=== PATIENT | male | born 1935 | race Caucasian/White ===

== ENCOUNTER 2018-08-16 08:15 | Inpatient (IN) | payer MEDICARE ==
[~2018-08-16] VITALS: Ht 167.6 cm; Wt 81.6 kg
[2018-08-16] VITALS (8 sets, daily range): BP systolic 106–147; BP diastolic 48–93
[2018-08-16] MEDS ORDERED: AZITHROMYCIN 500 MG in DEXT 5% WATER 250 ML IV STA (09:21)
[2018-08-16] MEDS ORDERED: CEFTRIAXONE 1 G PREMIX 50 ML IV SCH (09:30)
[2018-08-16 09:32] LABS: BASOPHILS % 0.4 % (0.0-2.0); EOSINOPHILS % 1.3 % (0.0-5.0); HEMATOCRIT. 37.4 % (42.0-52.0); HEMOGLOBIN. 12.3 g/dL (14.0-18.0); LYMPHOCYTES % 7.7 % (20.0-50.0); MEAN CORPUSCULAR HEMOGLOBIN 29.5 pg (28.0-32.0); MEAN CORPUSCULAR VOLUME 89.5 fL (80.0-94.0); MONOCYTES % 3.6 % (2.0-8.0); RED BLOOD CELL COUNT 4.18 mill/uL (4.7-6.1); RED CELL DISTRIBUTION WIDTH 14.5 % (11.6-14.6)
[2018-08-16 09:40] LABS: PROTHROMBIN TIME 10.4 sec (9.6-11.0)
[2018-08-16 09:41] LABS: CHLORIDE 103 mEq/L (98-107)
[2018-08-16] MEDS ORDERED: SODIUM CHLORIDE 0.9% 1,000 ML IV ONE (09:45)
[2018-08-16 10:11] LABS: PLATELET 284 x1000/uL (130-400)
[2018-08-16] MEDS ORDERED: DEXT 5% IV PRN (11:15)
[2018-08-16] MEDS ORDERED: MORPHINE IV PRN (11:15)
[2018-08-16] MEDS ORDERED: WATER IV PRN (11:15)
[2018-08-16] MEDS ORDERED: MORPHINE SULFATE 4 MG/ML CPJ (NOT FOR IM USE) IV ONE (11:15)
[2018-08-16 15:14] LABS: BG BASE EXCESS -0.1 mmol/L (-2.0-2.0); BG CARBOXYHEMOGLOBIN 0.3 % (0.5-1.5); BG FRACTION INSPIRED OXYGEN 100; BG HCO3 ACT 25.6 mmol/L (22.0-26.0); BG METHEMOGLOBIN 0.9 % (0.0-1.5); BG OXYHEMOGLOBIN 97.8 % (94.0-97.0); BG PCO2 46.2 mmHg (35.0-45.0); BG PH 7.362 (7.350-7.450); BG PO2 268.2 mmHg (75.0-100.0); BG SAMPLE SITE RIGHT RADIAL; BG TOTAL HEMOGLOBIN 12.3 g/dL (12.0-18.0); BG VENT MODE MASK - NRB
[2018-08-16] MEDS ORDERED: ALBUTE HHN (15:29)
[2018-08-16] MEDS ORDERED: FURO-152 MT (15:29)
[2018-08-16] MEDS ORDERED: PANT40TA4 MT (15:29)
[2018-08-16] MEDS ORDERED: PRED5TAB MT (15:29)
[2018-08-16] MEDS ORDERED: COR6 MT (15:42)
[2018-08-16] MEDS ORDERED: LACT10SO30 MT (15:42)
[2018-08-16] MEDS ORDERED: AMLO10TA80 MT (15:42)
[2018-08-16] MEDS ORDERED: RESTORIL PO (15:42)
[2018-08-16] MEDS ORDERED: DOCU-155 MT (15:42)
[2018-08-16] MEDS ORDERED: CLON0.1T MT (15:42)
[2018-08-16] MEDS ORDERED: GABA-531 MT (15:42)
[2018-08-16] MEDS ORDERED: OXYC10TA48 MT (15:42)
[2018-08-16] MEDS ORDERED: DULO60CA44 MT (15:42)
[2018-08-16] MEDS ORDERED: LORA1TAB MT (15:42)
[2018-08-16] MEDS ORDERED: LOSA100T3 MT (15:42)
[2018-08-16] MEDS ORDERED: LORA0.5T2 MT (15:44)
[2018-08-16] MEDS ORDERED: MAG-55 MT (15:44)
[2018-08-16] MEDS ORDERED: AMLO10TA4 PO (15:47)
[2018-08-16] MEDS ORDERED: [UNRECOGNIZED DRUG - OTHER] (15:57)
[2018-08-16] MEDS ORDERED: MORP10DI10 MT (15:57)
[2018-08-16] MEDS ORDERED: MAGNESIUM/ALUMINUM HYDROXIDE/SIMETHICONE 30ML UDC PO PRN (16:45)
[2018-08-16] MEDS ORDERED: IPRATROPIUM/ALBUTEROL 0.5-3(2.5)MG/3ML NEB INH PRN (16:45)
[2018-08-16] MEDS ORDERED: ONDANSETRON HCL 4MG/2ML INJ IV PRN (16:45)
[2018-08-16] MEDS ORDERED: ACETAMINOPHEN 325MG TABLET PO PRN (16:45)
[2018-08-16] MEDS ORDERED: ACETAMINOPHEN 650MG SUPP PR PRN (16:45)
[2018-08-16] MEDS ORDERED: NA PHOS,M-B/NA PHOS,DI-BA ENEMA 118ML PR PRN (16:45)
[2018-08-16] MEDS ORDERED: GUAIFENESIN 200MG/10ML SUGAR FREE UDC PO PRN (16:45)
[2018-08-16] MEDS ORDERED: ACETAMINOPHEN 650MG/20.3ML UDC GT PRN (16:45)
[2018-08-16] MEDS ORDERED: VANCOMYCIN 1 G PREMIX 200 ML IV SCH (16:45)
[2018-08-16] MEDS: LEVOFLOXACIN 500MG PREMIX 100 ML IV SCH (18:38)
[2018-08-16] MEDS: METHYLPREDNISOLONE SOD SUCC 40 MG/ML VIAL IV SCH (18:45)
[2018-08-16] MEDS: ENOXAPARIN 40MG/0.4ML SYR SUBCUT SCH (18:46)
[2018-08-16] MEDS ORDERED: VANCOMYCIN 1250MG in DEXTROSE 5% WATER 250ML IV SCH (20:00)
[2018-08-16] MEDS: IPRATROPIUM/ALBUTEROL 0.5-3(2.5)MG/3ML NEB INH SCH (21:07)
[2018-08-16] MEDS: HYDROCODONE/ACETAMINOPHEN 5/325MG TABLET PO PRN (21:54)
[2018-08-17] VITALS (17 sets, daily range): BP systolic 114–144; BP diastolic 60–93
[2018-08-17] MEDS: SODIUM CHLORIDE 0.9% INJ 3ML FLUSH IVF SCH ×4 (01:08→22:00)
[2018-08-17] MEDS: METHYLPREDNISOLONE SOD SUCC 40 MG/ML VIAL IV SCH ×3 (01:40→17:16)
[2018-08-17] MEDS: IPRATROPIUM/ALBUTEROL 0.5-3(2.5)MG/3ML NEB INH SCH ×4 (02:37→21:05)
[2018-08-17 07:33] LABS: BASOPHILS % 0.1 % (0.0-2.0); HEMATOCRIT. 35.8 % (42.0-52.0); HEMOGLOBIN. 12.1 g/dL (14.0-18.0); LYMPHOCYTES % 20.9 % (20.0-50.0); MEAN CORPUSCULAR HEMOGLOBIN 29.8 pg (28.0-32.0); MEAN CORPUSCULAR VOLUME 88.1 fL (80.0-94.0); MEAN PLATELET VOLUME 8.1 fl (7.4-10.4); MONOCYTES % 2.6 % (2.0-8.0); NEUTROPHILS % 76.4 % (40.0-76.0); PLATELET 246 x1000/uL (130-400); RED BLOOD CELL COUNT 4.06 mill/uL (4.7-6.1); RED CELL DISTRIBUTION WIDTH 13.8 % (11.6-14.6)
[2018-08-17] MEDS: AZTREONAM 2 GM in DEXT 5% WATER 100 ML IV SCH ×2 (08:12→17:10)
[2018-08-17 08:31] LABS: CHLORIDE 101 mEq/L (98-107)
[2018-08-17 08:40] LABS: HDL CHOLESTEROL 45 mg/dL (40-59); LDL CHOLESTEROL 107 mg/dL (5-100)
[2018-08-17] MEDS ORDERED: CEFTRIAXONE 1 G PREMIX 50 ML IV SCH (09:00)
[2018-08-17] MEDS: VANCOMYCIN 750 MG PREMIX 150 ML IV SCH ×2 (10:00→20:05)
[2018-08-17] MEDS: HYDROCODONE/ACETAMINOPHEN 5/325MG TABLET PO PRN ×2 (10:10→20:05)
[2018-08-17] MEDS: ENOXAPARIN 40MG/0.4ML SYR SUBCUT SCH (17:16)
[2018-08-17] MEDS: LEVOFLOXACIN 500MG PREMIX 100 ML IV SCH (18:20)
[2018-08-18] VITALS (12 sets, daily range): BP systolic 136–176; BP diastolic 59–95
[2018-08-18] MEDS: METHYLPREDNISOLONE SOD SUCC 40 MG/ML VIAL IV SCH (01:31)
[2018-08-18] MEDS: OXYCODONE HCL/ACETAMINOPHEN 5/325MG TABLET PO PRN (01:31)
[2018-08-18] MEDS: IPRATROPIUM/ALBUTEROL 0.5-3(2.5)MG/3ML NEB INH SCH ×4 (02:07→20:27)
[2018-08-18] MEDS: SODIUM CHLORIDE 0.9% INJ 3ML FLUSH IVF SCH ×3 (05:40→22:51)
[2018-08-18] MEDS: AZTREONAM 2 GM in DEXT 5% WATER 100 ML IV SCH ×2 (05:40→17:37)
[2018-08-18] MEDS ORDERED: METHYLPREDNISOLONE SOD SUCC 40 MG/ML VIAL IV SCH (09:00)
[2018-08-18] MEDS ORDERED: SODIUM CHLORIDE 10% FOR INH 15ML VIAL NEB INH SCH (10:00)
[2018-08-18 10:02] LABS: BASOPHILS % 0.2 % (0.0-2.0); HEMATOCRIT. 36.1 % (42.0-52.0); HEMOGLOBIN. 11.9 g/dL (14.0-18.0); LYMPHOCYTES % 13.3 % (20.0-50.0); MEAN CORPUSCULAR HEMOGLOBIN 29.2 pg (28.0-32.0); MEAN CORPUSCULAR VOLUME 88.3 fL (80.0-94.0); MEAN PLATELET VOLUME 8.4 fl (7.4-10.4); MONOCYTES % 2.6 % (2.0-8.0); NEUTROPHILS % 83.9 % (40.0-76.0); PLATELET 266 x1000/uL (130-400); RED BLOOD CELL COUNT 4.08 mill/uL (4.7-6.1); RED CELL DISTRIBUTION WIDTH 14.1 % (11.6-14.6)
[2018-08-18 10:10] LABS: CHLORIDE 103 mEq/L (98-107)
[2018-08-18] MEDS ORDERED: POTASSIUM CHLORIDE 20MEQ TABLET SR PO SCH (12:45)
[2018-08-18] MEDS ORDERED: ACETYLCYSTEINE 100MG/ML 10% VIAL 4ML INH SCH (13:00)
[2018-08-18] MEDS: VANCOMYCIN 1 G PREMIX 200 ML IV SCH (13:08)
[2018-08-18] MEDS: ENOXAPARIN 40MG/0.4ML SYR SUBCUT SCH (17:37)
[2018-08-18] MEDS: CLONIDINE 0.1MG TABLET PO PRN (18:10)
[2018-08-18] MEDS: LEVOFLOXACIN 500MG PREMIX 100 ML IV SCH (19:04)
[2018-08-18] MEDS: LORAZEPAM 0.5MG TABLET PO PRN (21:30)
[2018-08-18] MEDS: DIPHENHYDRAMINE 50MG/ML VIAL IV PRN (23:15)
[2018-08-19] VITALS (13 sets, daily range): BP systolic 118–185; BP diastolic 59–132
[2018-08-19] MEDS: OXYCODONE HCL/ACETAMINOPHEN 5/325MG TABLET PO PRN ×3 (01:14→17:54)
[2018-08-19] MEDS: IPRATROPIUM/ALBUTEROL 0.5-3(2.5)MG/3ML NEB INH SCH ×4 (01:39→20:55)
[2018-08-19] MEDS: ACETYLCYSTEINE 100MG/ML 10% VIAL 4ML INH SCH ×3 (01:39→14:58)
[2018-08-19] MEDS: AZTREONAM 2 GM in DEXT 5% WATER 100 ML IV SCH ×2 (06:14→18:54)
[2018-08-19] MEDS: SODIUM CHLORIDE 0.9% INJ 3ML FLUSH IVF SCH ×3 (06:14→22:38)
[2018-08-19] MEDS: CLONIDINE 0.1MG TABLET PO PRN (08:15)
[2018-08-19] MEDS: VANCOMYCIN 1 G PREMIX 200 ML IV SCH (08:17)
[2018-08-19] MEDS: HYDROCODONE/ACETAMINOPHEN 5/325MG TABLET PO PRN (08:17)
[2018-08-19] MEDS: BUDESONIDE 0.5MG/2ML NEB HHN SCH ×2 (09:16→20:55)
[2018-08-19] MEDS ORDERED: PULM50 HHN (12:52)
[2018-08-19] MEDS ORDERED: MUC103 INH (12:52)
[2018-08-19] MEDS ORDERED: IPRA3AMP9 INH (12:52)
[2018-08-19] MEDS ORDERED: AMLO5TAB4 MT (12:55)
[2018-08-19] MEDS ORDERED: LEVO500T2 MT (12:55)
[2018-08-19] MEDS: AMLODIPINE 5MG TABLET PO SCH ×2 (15:36→22:38)
[2018-08-19] MEDS: ENOXAPARIN 40MG/0.4ML SYR SUBCUT SCH (18:53)
[2018-08-19] MEDS: LEVOFLOXACIN 500MG PREMIX 100 ML IV SCH (18:54)
[2018-08-19 23:58] LABS: BASOPHILS % 0.1 % (0.0-2.0); EOSINOPHILS % 0.3 % (0.0-5.0); HEMOGLOBIN. 11.9 g/dL (14.0-18.0); LYMPHOCYTES % 23.3 % (20.0-50.0); MEAN CORPUSCULAR HEMOGLOBIN 29.2 pg (28.0-32.0); MEAN CORPUSCULAR VOLUME 87.9 fL (80.0-94.0); MEAN PLATELET VOLUME 8.3 fl (7.4-10.4); MONOCYTES % 10.1 % (2.0-8.0); NEUTROPHILS % 66.2 % (40.0-76.0); PLATELET 234 x1000/uL (130-400); RED BLOOD CELL COUNT 4.09 mill/uL (4.7-6.1); RED CELL DISTRIBUTION WIDTH 14.1 % (11.6-14.6)
[2018-08-20] VITALS (12 sets, daily range): BP systolic 116–147; BP diastolic 54–94
[2018-08-20 00:04] LABS: CHLORIDE 106 mEq/L (98-107)
[2018-08-20] MEDS: IPRATROPIUM/ALBUTEROL 0.5-3(2.5)MG/3ML NEB INH SCH ×5 (01:04→20:38)
[2018-08-20] MEDS: ACETYLCYSTEINE 100MG/ML 10% VIAL 4ML INH SCH ×4 (01:04→19:30)
[2018-08-20] MEDS: VANCOMYCIN 1 G PREMIX 200 ML IV SCH (01:37)
[2018-08-20] MEDS: SODIUM CHLORIDE 0.9% INJ 3ML FLUSH IVF SCH ×3 (06:15→21:17)
[2018-08-20] MEDS: AZTREONAM 2 GM in DEXT 5% WATER 100 ML IV SCH (06:15)
[2018-08-20] MEDS: BUDESONIDE 0.5MG/2ML NEB HHN SCH ×2 (07:38→20:38)
[2018-08-20] MEDS: AMLODIPINE 5MG TABLET PO SCH ×2 (08:08→21:17)
[2018-08-20] MEDS: OXYCODONE HCL/ACETAMINOPHEN 5/325MG TABLET PO PRN ×4 (08:08→23:21)
[2018-08-20] MEDS: CLONIDINE 0.1MG TABLET PO PRN (09:33)
[2018-08-20] MEDS ORDERED: AMLO5TAB88 PO (13:04)
[2018-08-20] MEDS ORDERED: MICA100V3 IV (13:04)
[2018-08-20] MEDS ORDERED: POTASSIUM CHLORIDE 20MEQ TABLET SR PO NR (13:15)
[2018-08-20] MEDS: MICAFUNGIN 100 MG in SODIUM CHLORIDE 0.9% 100 ML IV SCH (16:43)
[2018-08-20] MEDS: LEVOFLOXACIN 500MG PREMIX 100 ML IV SCH (17:42)
[2018-08-20] MEDS: ENOXAPARIN 40MG/0.4ML SYR SUBCUT SCH (17:42)
[2018-08-21] VITALS (23 sets, daily range): BP systolic 108–184; BP diastolic 59–117
[2018-08-21] MEDS: HYDROCODONE/ACETAMINOPHEN 5/325MG TABLET PO PRN ×4 (00:43→15:07)
[2018-08-21] MEDS: ACETYLCYSTEINE 100MG/ML 10% VIAL 4ML INH SCH ×3 (01:13→21:10)
[2018-08-21] MEDS: IPRATROPIUM/ALBUTEROL 0.5-3(2.5)MG/3ML NEB INH SCH ×3 (01:13→21:10)
[2018-08-21] MEDS: LORAZEPAM 0.5MG TABLET PO PRN (02:42)
[2018-08-21] MEDS: SODIUM CHLORIDE 0.9% INJ 3ML FLUSH IVF SCH ×3 (06:00→21:12)
[2018-08-21] MEDS: MICAFUNGIN 100 MG in SODIUM CHLORIDE 0.9% 100 ML IV SCH (09:12)
[2018-08-21] MEDS: AMLODIPINE 5MG TABLET PO SCH ×3 (09:12→21:16)
[2018-08-21] MEDS: LEVOFLOXACIN 500MG PREMIX 100 ML IV SCH (17:55)
[2018-08-21] MEDS: ENOXAPARIN 40MG/0.4ML SYR SUBCUT SCH (17:56)
[2018-08-21] MEDS: OXYCODONE HCL/ACETAMINOPHEN 5/325MG TABLET PO PRN (21:16)
[2018-08-21] MEDS: DIPHENHYDRAMINE 50MG/ML VIAL IV PRN (23:57)
[2018-08-22] VITALS (13 sets, daily range): BP systolic 128–159; BP diastolic 61–101
[2018-08-22] MEDS: IPRATROPIUM/ALBUTEROL 0.5-3(2.5)MG/3ML NEB INH SCH ×3 (00:40→21:39)
[2018-08-22] MEDS: ACETYLCYSTEINE 100MG/ML 10% VIAL 4ML INH SCH ×2 (00:40→07:31)
[2018-08-22] MEDS: SODIUM CHLORIDE 0.9% INJ 3ML FLUSH IVF SCH ×3 (05:14→21:13)
[2018-08-22] MEDS: MICAFUNGIN 100 MG in SODIUM CHLORIDE 0.9% 100 ML IV SCH ×2 (09:58→09:59)
[2018-08-22] MEDS: AMLODIPINE 5MG TABLET PO SCH ×2 (09:59→21:06)
[2018-08-22] MEDS: OXYCODONE HCL/ACETAMINOPHEN 5/325MG TABLET PO PRN ×3 (10:02→21:10)
[2018-08-22] MEDS: ENOXAPARIN 40MG/0.4ML SYR SUBCUT SCH (17:08)
[2018-08-22] MEDS: LEVOFLOXACIN 500MG PREMIX 100 ML IV SCH (17:09)
== END 2018-08-22 22:40 | DRG 871 ==
LOC: ER 08:15 → 5EST 10:32 → EDBEDREQ 10:38 → ENRESERV 12:51
PROVIDERS: ADMIT Family Medicine; ATTEND Family Medicine
PROC: 5A09357 Assistance with Respiratory Ventilation, Less than 24 Consecutive Hours, Continuous Positive Airway Pressure (ICD-10-PCS; principal; 2018-08-16)
DX: A41.9 Sepsis, unspecified organism (principal); J96.20 Acute and chronic respiratory failure, unspecified whether with hypoxia or hypercapnia; J18.9 Pneumonia, unspecified organism; J44.1 Chronic obstructive pulmonary disease with (acute) exacerbation; J44.0 Chronic obstructive pulmonary disease with (acute) lower respiratory infection; E44.1 Mild protein-calorie malnutrition; I50.42 Chronic combined systolic (congestive) and diastolic (congestive) heart failure; D63.1 Anemia in chronic kidney disease; E11.9 Type 2 diabetes mellitus without complications; R62.7 Adult failure to thrive; L89.620 Pressure ulcer of left heel, unstageable; Z51.5 Encounter for palliative care; Z66 Do not resuscitate; Z88.0 Allergy status to penicillin; Z68.29 Body mass index [BMI] 29.0-29.9, adult; Z74.01 Bed confinement status; Z79.899 Other long term (current) drug therapy
CPT/HCPCS: 36415; 36600; 71045; 80061; 80202; 82375; 82805; 83605; 83880; 84145; 84484; 87070; 87106; 92610; 93005; 93970; 94640; 94660; 94667; 96361; 96365; 96375; 97162; 99285; A6261; J0456; J0696; J1200; J1650; J1956; J2248; J2270; J2920; J3370; J3490; J7030; J7040; J7050; J7060; J7131; J7608; J7620; J7626; A4315

== ENCOUNTER 2019-02-24 16:08 | Emergency (ER) | payer MEDICARE, MEDICAID ==
[~2019-02-24] VITALS: Ht 175.3 cm; Wt 91.0 kg
[~2019-02-24 16:08] MED LIST: ALBUTE HHN; AMLO5TAB4 MT; AMLO5TAB88 PO; CLON0.1T MT; DOCU-155 MT; DULO60CA44 MT; GABA-531 MT; IPRA3AMP9 INH; LACT10SO30 MT; LEVO500T2 MT; MAG-55 MT; MICA100V3 IV; MUC103 INH; PRED5TAB MT; PULM50 HHN
[2019-02-24] MEDS ORDERED: ONDANSETRON HCL 4MG/2ML INJ IV STA (18:17)
[2019-02-24] MEDS ORDERED: SODIUM CHLORIDE 0.9% 1,000 ML IV ONE (18:17)
[2019-02-24 18:34] LABS: BASOPHILS % 0.5 % (0.0-2.0); EOSINOPHILS % 0.6 % (0.0-5.0); HEMATOCRIT. 41.5 % (42.0-52.0); HEMOGLOBIN. 14.1 g/dL (14.0-18.0); LYMPHOCYTES % 19.5 % (20.0-50.0); MEAN CORPUSCULAR HEMOGLOBIN 29.6 pg (28.0-32.0); MEAN CORPUSCULAR VOLUME 87.2 fL (80.0-94.0); MEAN PLATELET VOLUME 8.4 fl (7.4-10.4); NEUTROPHILS % 68.4 % (40.0-76.0); PLATELET 262 x1000/uL (130-400); RED BLOOD CELL COUNT 4.76 mill/uL (4.7-6.1); RED CELL DISTRIBUTION WIDTH 14.9 % (11.6-14.6)
[2019-02-24 18:42] LABS: CHLORIDE 104 mEq/L (98-107)
[2019-02-24 21:20] VITALS: BP 121/92
== END 2019-02-24 21:25 | disposition home or self-care (01) ==
LOC: ER 16:08
DX: R19.7 Diarrhea, unspecified (principal); R11.10 Vomiting, unspecified; I11.0 Hypertensive heart disease with heart failure; I50.9 Heart failure, unspecified; J44.9 Chronic obstructive pulmonary disease, unspecified; Z87.01 Personal history of pneumonia (recurrent); Z86.73 Personal history of transient ischemic attack (TIA), and cerebral infarction without residual deficits; Z88.0 Allergy status to penicillin; Z79.899 Other long term (current) drug therapy
CPT/HCPCS: 36415; 71045; 80053; 83690; 83880; 84484; 85025; 87804; 93005; 96361; 96374; 99284; J2405; J7030

== ENCOUNTER 2019-05-12 10:45 | Inpatient (IN) | payer MEDICARE, MEDICAID ==
[~2019-05-12] VITALS: Ht 165.1 cm; Wt 74.5 kg
[2019-05-12] MEDS: IPRATROPIUM/ALBUTEROL 0.5-3(2.5)MG/3ML NEB HHN SCH (04:53)
[2019-05-12] MEDS: BUDESONIDE 0.5MG/2ML NEB HHN SCH (08:57)
[2019-05-12] MEDS ORDERED: IPRATROPIUM BROMIDE (0.02%) 0.5MG/2.5ML NEB HHN STA (10:46)
[2019-05-12] MEDS ORDERED: MAGNESIUM 2 G PREMIX 50 ML IV STA (10:46)
[2019-05-12] MEDS ORDERED: METHYLPREDNISOLONE SOD SUCC 125 MG/2 ML VIAL IV STA (10:46)
[2019-05-12] MEDS ORDERED: ALBUTEROL (0.083%) 2.5MG/3ML NEB HHN STA (10:46)
[2019-05-12 11:12] LABS: BG BASE EXCESS 4.4 mmol/L (-2.0-2.0); BG CARBOXYHEMOGLOBIN 0.3 % (0.5-1.5); BG DEOXYHEMOGLOBIN 1.3 % (0.0-5.0); BG FRACTION INSPIRED OXYGEN 50; BG HCO3 ACT 28.9 mmol/L (22.0-26.0); BG METHEMOGLOBIN 0.2 % (0.0-1.5); BG OXYGEN SATURATION 98.7 % (92.0-98.5); BG OXYHEMOGLOBIN 98.2 % (94.0-97.0); BG PCO2 42.8 mmHg (35.0-45.0); BG PH 7.448 (7.350-7.450); BG PO2 165.6 mmHg (75.0-100.0); BG SAMPLE SITE RIGHT RADIAL; BG VENT MODE MASK - BIPAP; BG VENT RATE 16 set
[2019-05-12 11:19] LABS: EOSINOPHILS % 3.5 % (0.0-5.0); HEMATOCRIT. 37.6 % (42.0-52.0); HEMOGLOBIN. 12.7 g/dL (14.0-18.0); LYMPHOCYTES % 21.8 % (20.0-50.0); MEAN CORPUSCULAR HEMOGLOBIN 29.5 pg (28.0-32.0); MEAN CORPUSCULAR VOLUME 87.3 fL (80.0-94.0); MEAN PLATELET VOLUME 8.1 fl (7.4-10.4); MONOCYTES % 10.1 % (2.0-8.0); NEUTROPHILS % 63.6 % (40.0-76.0); PLATELET 269 x1000/uL (130-400); RED BLOOD CELL COUNT 4.31 mill/uL (4.7-6.1); RED CELL DISTRIBUTION WIDTH 14.7 % (11.6-14.6)
[2019-05-12 11:21] LABS: CHLORIDE 106 mEq/L (98-107)
[2019-05-12] MEDS ORDERED: LEVOFLOXACIN 750MG PREMIX 150 ML IV ONE (11:45)
[2019-05-12] MEDS ORDERED: ONDANSETRON HCL 4MG/2ML INJ IV PRN (13:30)
[2019-05-12] MEDS ORDERED: IPRATROPIUM/ALBUTEROL 0.5-3(2.5)MG/3ML NEB HHN PRN (13:30)
[2019-05-12] MEDS ORDERED: LEVOFLOXACIN 750MG PREMIX 150 ML IV SCH (13:30)
[2019-05-12 15:11] VITALS: BP 115/72
[2019-05-12 15:13] VITALS: BP 115/72
[2019-05-12 16:00] VITALS: BP 138/69
[2019-05-12] MEDS: ENOXAPARIN 30MG/0.3ML SYR SUBCUT SCH (16:05)
[2019-05-12] MEDS: MONTELUKAST SODIUM 10MG TABLET PO SCH (16:57)
[2019-05-12 18:00] VITALS: BP 133/59
[2019-05-12 20:00] VITALS: BP 139/76
[2019-05-12] MEDS: BENZONATATE 100MG CAPSULE PO PRN (20:43)
[2019-05-12] MEDS: ATORVASTATIN CALCIUM 40MG TABLET PO SCH (20:43)
[2019-05-12 22:00] VITALS: BP 145/76
[2019-05-13] VITALS (11 sets, daily range): BP systolic 115–154; BP diastolic 68–106
[2019-05-13] MEDS: ACETYLCYSTEINE 100MG/ML 10% VIAL 4ML INH SCH ×3 (00:36→17:22)
[2019-05-13] MEDS: IPRATROPIUM/ALBUTEROL 0.5-3(2.5)MG/3ML NEB HHN SCH ×5 (00:36→20:55)
[2019-05-13] MEDS: ACETAMINOPHEN 325MG TABLET PO PRN ×2 (01:18→16:17)
[2019-05-13 07:10] LABS: BASOPHILS % 0.2 % (0.0-2.0); HEMATOCRIT. 35.3 % (42.0-52.0); HEMOGLOBIN. 12.2 g/dL (14.0-18.0); LYMPHOCYTES % 11.1 % (20.0-50.0); MEAN CORPUSCULAR VOLUME 86.8 fL (80.0-94.0); MEAN PLATELET VOLUME 8.3 fl (7.4-10.4); MONOCYTES % 2.9 % (2.0-8.0); NEUTROPHILS % 85.8 % (40.0-76.0); PLATELET 278 x1000/uL (130-400); RED BLOOD CELL COUNT 4.07 mill/uL (4.7-6.1); RED CELL DISTRIBUTION WIDTH 14.5 % (11.6-14.6)
[2019-05-13 07:23] LABS: CHLORIDE 103 mEq/L (98-107)
[2019-05-13] MEDS: CLOPIDOGREL 75MG TABLET PO SCH (08:00)
[2019-05-13] MEDS: LEVOFLOXACIN 750MG PREMIX 150 ML IV SCH (08:00)
[2019-05-13] MEDS: BENZONATATE 100MG CAPSULE PO PRN (08:00)
[2019-05-13] MEDS: BUDESONIDE 0.5MG/2ML NEB HHN SCH ×2 (12:26→20:56)
[2019-05-13] MEDS: ENOXAPARIN 30MG/0.3ML SYR SUBCUT SCH (16:15)
[2019-05-13] MEDS: MONTELUKAST SODIUM 10MG TABLET PO SCH (16:15)
[2019-05-13] MEDS: CLONIDINE 0.1MG TABLET PO PRN (20:52)
[2019-05-13] MEDS: ATORVASTATIN CALCIUM 40MG TABLET PO SCH (20:52)
[2019-05-14] VITALS (13 sets, daily range): BP systolic 98–160; BP diastolic 36–96
[2019-05-14] MEDS: IPRATROPIUM/ALBUTEROL 0.5-3(2.5)MG/3ML NEB HHN SCH ×6 (00:37→20:42)
[2019-05-14] MEDS: CLONIDINE 0.1MG TABLET PO PRN (06:29)
[2019-05-14] MEDS: BUDESONIDE 0.5MG/2ML NEB HHN SCH ×2 (08:33→20:41)
[2019-05-14] MEDS: ACETYLCYSTEINE 100MG/ML 10% VIAL 4ML INH SCH ×3 (08:34→16:36)
[2019-05-14] MEDS: CLOPIDOGREL 75MG TABLET PO SCH (09:04)
[2019-05-14] MEDS: LEVOFLOXACIN 750MG PREMIX 150 ML IV SCH (09:04)
[2019-05-14] MEDS: MONTELUKAST SODIUM 10MG TABLET PO SCH (16:41)
[2019-05-14] MEDS: METHYLPREDNISOLONE SOD SUCC 40 MG/ML VIAL IV SCH (16:41)
[2019-05-14] MEDS: ENOXAPARIN 40MG/0.4ML SYR SUBCUT SCH (16:41)
[2019-05-14] MEDS: ATORVASTATIN CALCIUM 40MG TABLET PO SCH (21:47)
[2019-05-15] VITALS (12 sets, daily range): BP systolic 113–171; BP diastolic 59–92
[2019-05-15] MEDS: ACETYLCYSTEINE 100MG/ML 10% VIAL 4ML INH SCH ×2 (00:23→09:33)
[2019-05-15] MEDS: IPRATROPIUM/ALBUTEROL 0.5-3(2.5)MG/3ML NEB HHN SCH ×7 (00:24→19:44)
[2019-05-15] MEDS: METHYLPREDNISOLONE SOD SUCC 40 MG/ML VIAL IV SCH ×3 (02:50→17:49)
[2019-05-15 07:00] LABS: BASOPHILS % 0.1 % (0.0-2.0); HEMATOCRIT. 39.3 % (42.0-52.0); HEMOGLOBIN. 13.4 g/dL (14.0-18.0); LYMPHOCYTES % 8.4 % (20.0-50.0); MEAN CORPUSCULAR HEMOGLOBIN 29.7 pg (28.0-32.0); MEAN CORPUSCULAR VOLUME 87.3 fL (80.0-94.0); MEAN PLATELET VOLUME 8.3 fl (7.4-10.4); MONOCYTES % 3.9 % (2.0-8.0); NEUTROPHILS % 87.6 % (40.0-76.0); PLATELET 301 x1000/uL (130-400); RED BLOOD CELL COUNT 4.51 mill/uL (4.7-6.1); RED CELL DISTRIBUTION WIDTH 14.6 % (11.6-14.6)
[2019-05-15 07:20] LABS: CHLORIDE 103 mEq/L (98-107)
[2019-05-15] MEDS: BUDESONIDE 0.5MG/2ML NEB HHN SCH ×2 (09:33→19:44)
[2019-05-15] MEDS: LEVOFLOXACIN 250MG TABLET PO SCH (10:29)
[2019-05-15] MEDS: CLOPIDOGREL 75MG TABLET PO SCH ×2 (10:29→13:21)
[2019-05-15] MEDS: ACETAMINOPHEN 325MG TABLET PO PRN (12:36)
[2019-05-15] MEDS: BENZONATATE 100MG CAPSULE PO PRN (13:20)
[2019-05-15] MEDS: ENOXAPARIN 40MG/0.4ML SYR SUBCUT SCH (17:49)
[2019-05-15] MEDS: MONTELUKAST SODIUM 10MG TABLET PO SCH (17:50)
[2019-05-15] MEDS ORDERED: POTASSIUM CHLORIDE INJ 40 MEQ in DEXT 5% WATER 250 ML IV NR (18:00)
[2019-05-15] MEDS: ATORVASTATIN CALCIUM 40MG TABLET PO SCH (20:47)
[2019-05-15] MEDS: GUAIFENESIN 600MG ER TABLET PO SCH (20:47)
[2019-05-16] VITALS (12 sets, daily range): BP systolic 114–167; BP diastolic 59–101
[2019-05-16] MEDS: IPRATROPIUM/ALBUTEROL 0.5-3(2.5)MG/3ML NEB HHN SCH ×5 (00:30→19:56)
[2019-05-16] MEDS: METHYLPREDNISOLONE SOD SUCC 40 MG/ML VIAL IV SCH ×3 (00:30→16:11)
[2019-05-16] MEDS: ACETAMINOPHEN 325MG TABLET PO PRN ×2 (00:37→22:32)
[2019-05-16] MEDS: BENZONATATE 100MG CAPSULE PO PRN ×4 (00:38→22:33)
[2019-05-16 07:09] LABS: CHLORIDE 105 mEq/L (98-107)
[2019-05-16 07:14] LABS: HEMATOCRIT. 39.2 % (42.0-52.0); HEMOGLOBIN. 13.5 g/dL (14.0-18.0); MEAN CORPUSCULAR HEMOGLOBIN 29.7 pg (28.0-32.0); MEAN CORPUSCULAR VOLUME 86.2 fL (80.0-94.0); MEAN PLATELET VOLUME 8.6 fl (7.4-10.4); PLATELET 320 x1000/uL (130-400); RED BLOOD CELL COUNT 4.54 mill/uL (4.7-6.1); RED CELL DISTRIBUTION WIDTH 14.4 % (11.6-14.6)
[2019-05-16] MEDS: GUAIFENESIN 600MG ER TABLET PO SCH ×2 (08:24→22:32)
[2019-05-16] MEDS: FUROSEMIDE 40MG/4ML VIAL IVP SCH ×2 (09:35→16:11)
[2019-05-16 09:53] LABS: BG BASE EXCESS 1.6 mmol/L (-2.0-2.0); BG CARBOXYHEMOGLOBIN 0.3 % (0.5-1.5); BG DEOXYHEMOGLOBIN 3.5 % (0.0-5.0); BG HCO3 ACT 24.9 mmol/L (22.0-26.0); BG METHEMOGLOBIN 0.4 % (0.0-1.5); BG OXYGEN SATURATION 96.5 % (92.0-98.5); BG OXYHEMOGLOBIN 95.8 % (94.0-97.0); BG PCO2 35.3 mmHg (35.0-45.0); BG PH 7.466 (7.350-7.450); BG PO2 86.6 mmHg (75.0-100.0); BG SAMPLE SITE RIGHT RADIAL; BG TOTAL HEMOGLOBIN 14.3 g/dL (12.0-18.0); BG VENT MODE NASAL CANNULA
[2019-05-16] MEDS: LEVOFLOXACIN 250MG TABLET PO SCH (12:24)
[2019-05-16] MEDS: BUDESONIDE 0.5MG/2ML NEB HHN SCH ×2 (15:55→19:57)
[2019-05-16] MEDS: MONTELUKAST SODIUM 10MG TABLET PO SCH (16:12)
[2019-05-16] MEDS: ENOXAPARIN 40MG/0.4ML SYR SUBCUT SCH (16:13)
[2019-05-16] MEDS: PROMETHAZINE/DEXTROMETHORPHAN 6.25-15MG/5ML BOTTLE 120ML PO PRN (18:06)
[2019-05-16 20:26] LABS: PLATELET ESTIMATE NORMAL
[2019-05-16] MEDS: ATORVASTATIN CALCIUM 40MG TABLET PO SCH (22:32)
[2019-05-17] VITALS (12 sets, daily range): BP systolic 105–186; BP diastolic 42–105
[2019-05-17] MEDS: METHYLPREDNISOLONE SOD SUCC 40 MG/ML VIAL IV SCH ×4 (02:06→23:43)
[2019-05-17] MEDS: PROMETHAZINE/DEXTROMETHORPHAN 6.25-15MG/5ML BOTTLE 120ML PO PRN ×2 (02:19→22:58)
[2019-05-17] MEDS: IPRATROPIUM/ALBUTEROL 0.5-3(2.5)MG/3ML NEB HHN SCH ×6 (04:19→20:48)
[2019-05-17 06:47] LABS: HEMATOCRIT. 37.3 % (42.0-52.0); HEMOGLOBIN. 12.7 g/dL (14.0-18.0); MEAN CORPUSCULAR HEMOGLOBIN 29.6 pg (28.0-32.0); MEAN CORPUSCULAR VOLUME 86.8 fL (80.0-94.0); MEAN PLATELET VOLUME 8.4 fl (7.4-10.4); PLATELET 309 x1000/uL (130-400); RED CELL DISTRIBUTION WIDTH 14.6 % (11.6-14.6)
[2019-05-17] MEDS: BUDESONIDE 0.5MG/2ML NEB HHN SCH ×2 (08:02→20:48)
[2019-05-17] MEDS: GUAIFENESIN 600MG ER TABLET PO SCH ×2 (08:53→20:19)
[2019-05-17] MEDS: CLOPIDOGREL 75MG TABLET PO SCH (08:53)
[2019-05-17] MEDS ORDERED: POTASSIUM CHLORIDE 20MEQ TABLET SR PO SCH (09:15)
[2019-05-17] MEDS: FUROSEMIDE 40MG/4ML VIAL IVP SCH ×2 (09:38→16:34)
[2019-05-17] MEDS: LEVOFLOXACIN 250MG TABLET PO SCH (10:51)
[2019-05-17] MEDS ORDERED: KCL 10MEQ/50ML PREMIX 50 ML IV SCH (11:00)
[2019-05-17] MEDS: ACETAMINOPHEN 325MG TABLET PO PRN ×2 (11:52→17:31)
[2019-05-17 12:38] LABS: PHOSPHORUS 3.5 mg/dL (2.5-4.9)
[2019-05-17 14:13] LABS: PLATELET ESTIMATE NORMAL
[2019-05-17] MEDS ORDERED: TERBUTALINE SULFATE 1MG/ML VIAL SUBCUT NR (14:19)
[2019-05-17] MEDS: MONTELUKAST SODIUM 10MG TABLET PO SCH (16:34)
[2019-05-17] MEDS: ENOXAPARIN 40MG/0.4ML SYR SUBCUT SCH (16:36)
[2019-05-17] MEDS: ATORVASTATIN CALCIUM 40MG TABLET PO SCH (20:19)
[2019-05-17] MEDS: BENZONATATE 100MG CAPSULE PO PRN (20:19)
[2019-05-18] VITALS (11 sets, daily range): BP systolic 126–186; BP diastolic 64–92
[2019-05-18] MEDS: IPRATROPIUM/ALBUTEROL 0.5-3(2.5)MG/3ML NEB HHN SCH ×6 (00:54→21:31)
[2019-05-18] MEDS: GUAIFENESIN 600MG ER TABLET PO SCH ×2 (08:56→21:01)
[2019-05-18] MEDS: CLOPIDOGREL 75MG TABLET PO SCH (08:56)
[2019-05-18] MEDS: METHYLPREDNISOLONE SOD SUCC 40 MG/ML VIAL IV SCH ×2 (08:56→16:35)
[2019-05-18] MEDS: FUROSEMIDE 40MG/4ML VIAL IVP SCH ×2 (08:56→16:35)
[2019-05-18 09:37] LABS: HEMATOCRIT. 41.1 % (42.0-52.0); HEMOGLOBIN. 13.9 g/dL (14.0-18.0); MEAN CORPUSCULAR HEMOGLOBIN 29.4 pg (28.0-32.0); MEAN CORPUSCULAR VOLUME 87.1 fL (80.0-94.0); MEAN PLATELET VOLUME 8.4 fl (7.4-10.4); PLATELET 302 x1000/uL (130-400); RED BLOOD CELL COUNT 4.72 mill/uL (4.7-6.1)
[2019-05-18] MEDS: BUDESONIDE 0.5MG/2ML NEB HHN SCH ×2 (09:45→21:32)
[2019-05-18 14:22] LABS: NUCLEATED RED BLOOD CELLS 1 /100 WBC; PLATELET ESTIMATE NORMAL
[2019-05-18] MEDS: ENOXAPARIN 40MG/0.4ML SYR SUBCUT SCH (16:35)
[2019-05-18] MEDS: MONTELUKAST SODIUM 10MG TABLET PO SCH (16:35)
[2019-05-18] MEDS: ACETAMINOPHEN 325MG TABLET PO PRN (16:35)
[2019-05-18] MEDS: BENZONATATE 100MG CAPSULE PO PRN (21:01)
[2019-05-18] MEDS: ATORVASTATIN CALCIUM 40MG TABLET PO SCH (21:01)
[2019-05-19] VITALS (12 sets, daily range): BP systolic 112–164; BP diastolic 60–97
[2019-05-19] MEDS: IPRATROPIUM/ALBUTEROL 0.5-3(2.5)MG/3ML NEB HHN SCH ×6 (00:39→20:50)
[2019-05-19] MEDS: METHYLPREDNISOLONE SOD SUCC 40 MG/ML VIAL IV SCH ×2 (01:08→08:18)
[2019-05-19] MEDS: PROMETHAZINE/DEXTROMETHORPHAN 6.25-15MG/5ML BOTTLE 120ML PO PRN (01:08)
[2019-05-19] MEDS: ACETAMINOPHEN 325MG TABLET PO PRN (01:18)
[2019-05-19] MEDS: FUROSEMIDE 40MG/4ML VIAL IVP SCH ×2 (07:15→17:15)
[2019-05-19 07:24] LABS: HEMATOCRIT. 39.2 % (42.0-52.0); HEMOGLOBIN. 13.1 g/dL (14.0-18.0); MEAN CORPUSCULAR HEMOGLOBIN 29.1 pg (28.0-32.0); MEAN PLATELET VOLUME 8.6 fl (7.4-10.4); PLATELET 264 x1000/uL (130-400); RED CELL DISTRIBUTION WIDTH 14.6 % (11.6-14.6)
[2019-05-19] MEDS: BUDESONIDE 0.5MG/2ML NEB HHN SCH (07:42)
[2019-05-19 07:43] LABS: CHLORIDE 102 mEq/L (98-107)
[2019-05-19] MEDS: CLOPIDOGREL 75MG TABLET PO SCH (08:18)
[2019-05-19] MEDS: GUAIFENESIN 600MG ER TABLET PO SCH ×2 (08:18→20:40)
[2019-05-19] MEDS ORDERED: POTASSIUM CHLORIDE INJ 40 MEQ in DEXT 5% WATER 250 ML IV NR (10:00)
[2019-05-19] MEDS ORDERED: LEVOFLOXACIN 250MG TABLET PO SCH (11:00)
[2019-05-19 13:11] LABS: PLATELET ESTIMATE NORMAL
[2019-05-19] MEDS ORDERED: METHYLPREDNISOLONE SOD SUCC 40 MG/ML VIAL IV SCH (17:00)
[2019-05-19] MEDS: ENOXAPARIN 40MG/0.4ML SYR SUBCUT SCH (17:21)
[2019-05-19] MEDS: MONTELUKAST SODIUM 10MG TABLET PO SCH (17:21)
[2019-05-19] MEDS: ATORVASTATIN CALCIUM 40MG TABLET PO SCH (20:40)
== END 2019-05-19 21:46 | DRG 871 ==
LOC: ER 10:45 → 3WST 12:02 → EDBEDREQ 12:07 → EDBEDREQTM 12:07 → ENRESERV 14:00
PROVIDERS: ADMIT Internal Medicine; ATTEND Internal Medicine
PROC: 5A09357 Assistance with Respiratory Ventilation, Less than 24 Consecutive Hours, Continuous Positive Airway Pressure (ICD-10-PCS; principal; 2019-05-12)
PROC: 5A09357 Assistance with Respiratory Ventilation, Less than 24 Consecutive Hours, Continuous Positive Airway Pressure (ICD-10-PCS; 2019-05-13)
PROC: 5A09357 Assistance with Respiratory Ventilation, Less than 24 Consecutive Hours, Continuous Positive Airway Pressure (ICD-10-PCS; 2019-05-14)
PROC: 5A09357 Assistance with Respiratory Ventilation, Less than 24 Consecutive Hours, Continuous Positive Airway Pressure (ICD-10-PCS; 2019-05-15)
PROC: 5A09357 Assistance with Respiratory Ventilation, Less than 24 Consecutive Hours, Continuous Positive Airway Pressure (ICD-10-PCS; 2019-05-16)
PROC: 5A09357 Assistance with Respiratory Ventilation, Less than 24 Consecutive Hours, Continuous Positive Airway Pressure (ICD-10-PCS; 2019-05-17)
DX: A41.9 Sepsis, unspecified organism (principal); J69.0 Pneumonitis due to inhalation of food and vomit; J96.21 Acute and chronic respiratory failure with hypoxia; I50.43 Acute on chronic combined systolic (congestive) and diastolic (congestive) heart failure; I42.9 Cardiomyopathy, unspecified; Z66 Do not resuscitate; D64.9 Anemia, unspecified; I50.9 Heart failure, unspecified; E78.5 Hyperlipidemia, unspecified; I11.0 Hypertensive heart disease with heart failure; I27.29 Other secondary pulmonary hypertension; J43.9 Emphysema, unspecified; R13.10 Dysphagia, unspecified; R47.02 Dysphasia; Z87.01 Personal history of pneumonia (recurrent); Z87.891 Personal history of nicotine dependence; Z99.81 Dependence on supplemental oxygen; Z99.3 Dependence on wheelchair; Z86.73 Personal history of transient ischemic attack (TIA), and cerebral infarction without residual deficits; Z79.899 Other long term (current) drug therapy
CPT/HCPCS: 36415; 36600; 71045; 71250; 80048; 80053; 82375; 82805; 83735; 83880; 84100; 84134; 84484; 85025; 92610; 93005; 93306; 94640; 94644; 94660; 94667; 97162; 97164; 97530; 99291; J1650; J1940; J1956; J2920; J2930; J3105; J3475; J3480; J7060; J7608; J7626